=== PATIENT | female | born 1955 | race Caucasian/White ===

== ENCOUNTER → 2018-07-31 12:32 | Outpatient (CLI) | payer MEDICARE, OTHER, SELFPAY ==
--- NOTE | 2018-07-31 | DI.MG.S_ITS ---
BILATERAL DIGITAL SCREENING MAMMOGRAM 3D/2D WITH CAD: 07/31/2018 CLINICAL: Routine screening. Family history of breast cancer. Comparison is made to exams dated: 07/14/2017 mammogram, 05/06/2016 mammogram, and 12/10/2014 mammogram - [facility]. There are scattered fibroglandular elements in both breasts. Current study was also evaluated with a Computer Aided Detection (CAD) system. There is a mole marker on the left breast. No significant masses, calcifications, or other findings are seen in either breast. There has been no significant interval change. IMPRESSION: NEGATIVE There is no mammographic evidence of malignancy. A 1 year screening mammogram is recommended. This exam was interpreted at Station ID: [id number]. NOTE: For mammograms, a report in lay terms will be sent to the patient. Approximately 15% of breast malignancies will not be visualized mammographically. In the management of a palpable breast mass, a negative mammogram must not discourage biopsy of a clinically suspicious lesion. Electronically Signed By: Kyle bailey/lizabeth:07/31/2018 17:26:36 letter sent: Normal Exam ACR BI-RADS Category 1: Negative 3341F
== END ==
PROVIDERS: PCP Family Medicine; Visit Provider Family Medicine
DX: Z12.31 Encounter for screening mammogram for malignant neoplasm of breast (principal); Z80.3 Family history of malignant neoplasm of breast; Z78.0 Asymptomatic menopausal state; Z82.62 Family history of osteoporosis
CPT/HCPCS: 77063; 77067; 77080

== ENCOUNTER → 2019-08-17 14:02 | Outpatient (CLI) | payer MEDICARE, OTHER, SELFPAY ==
--- NOTE | 2019-08-17 | DI.MG.S_ITS ---
BILATERAL DIGITAL SCREENING MAMMOGRAM 3D/2D WITH CAD: 08/17/2019 CLINICAL: Routine screening. Family history of breast cancer. Comparison is made to exams dated: 07/31/2018 mammogram, 07/14/2017 mammogram, and 05/06/2016 mammogram - [facility]. There are scattered fibroglandular elements in both breasts. Current study was also evaluated with a Computer Aided Detection (CAD) system. No significant masses, calcifications, or other findings are seen in either breast. There has been no significant interval change. IMPRESSION: NEGATIVE There is no mammographic evidence of malignancy. A 1 year screening mammogram is recommended. This exam was interpreted at Station ID: [id number]. NOTE: For mammograms, a report in lay terms will be sent to the patient. Approximately 15% of breast malignancies will not be visualized mammographically. In the management of a palpable breast mass, a negative mammogram must not discourage biopsy of a clinically suspicious lesion. Electronically Signed By: Du cadena/lizabeth:08/17/2019 16:32:45 letter sent: Normal Exam ACR BI-RADS Category 1: Negative 3341F
== END ==
PROVIDERS: PCP Family Medicine; Visit Provider Family Medicine
DX: Z12.31 Encounter for screening mammogram for malignant neoplasm of breast (principal); Z80.3 Family history of malignant neoplasm of breast
CPT/HCPCS: 77063; 77067

== ENCOUNTER → 2020-08-20 08:08 | Outpatient (CLI) | payer MEDICARE, OTHER, SELFPAY ==
--- NOTE | 2020-08-20 | DI.MG.S_ITS ---
BILATERAL DIGITAL SCREENING MAMMOGRAM 3D/2D WITH CAD: 08/20/2020 CLINICAL: Routine screening. Family history of breast cancer. Comparison is made to exams dated: 08/17/2019 mammogram, 07/31/2018 mammogram, and 07/14/2017 mammogram - [facility]. There are scattered fibroglandular elements in both breasts. Current study was also evaluated with a Computer Aided Detection (CAD) system. No significant masses, calcifications, or other findings are seen in either breast. There has been no significant interval change. IMPRESSION: NEGATIVE There is no mammographic evidence of malignancy. A 1 year screening mammogram is recommended. This exam was interpreted at Station ID: [id number]. NOTE: For mammograms, a report in lay terms will be sent to the patient. Approximately 15% of breast malignancies will not be visualized mammographically. In the management of a palpable breast mass, a negative mammogram must not discourage biopsy of a clinically suspicious lesion. Electronically Signed By: Abdelrahman lowry/lizabeth:08/20/2020 10:35:05 letter sent: Normal Exam ACR BI-RADS Category 1: Negative 3341F
== END ==
PROVIDERS: PCP Family Medicine; Referring Provider Family Medicine; Visit Provider Family Medicine
DX: Z12.31 Encounter for screening mammogram for malignant neoplasm of breast (principal); Z78.0 Asymptomatic menopausal state; Z80.3 Family history of malignant neoplasm of breast; Z82.62 Family history of osteoporosis
CPT/HCPCS: 77063; 77067; 77080

== ENCOUNTER → 2020-09-22 12:32 | Outpatient (CLI) | payer MEDICARE, OTHER, SELFPAY ==
--- NOTE | 2020-09-22 | DI.RAD.S_ITS ---
PROCEDURE: XR CHEST 2V INDICATIONS: Shortness of breath TECHNIQUE: 2 views of the chest were acquired. COMPARISON: None. FINDINGS: Surgical changes and devices: None. Lungs and pleura: Lungs are clear. No pleural effusions or pneumothorax. Mediastinum: Mediastinal contours are normal. Heart size is normal. Bones and chest wall: No suspicious bony abnormalities. Soft tissues appear unremarkable. IMPRESSION: 1. No acute cardiopulmonary disease. Dictated by: Tanner Srinivasan RR Interpreted: Abdelrahman Aguirre MD on 09/22/2020 at 13:45 Approved by: Abdelrahman Aguirre M.D. on 09/22/2020 at 15:47
== END ==
PROVIDERS: PCP Family Medicine; Referring Provider Family Medicine; Visit Provider Family Medicine
DX: R06.02 Shortness of breath (principal); R00.2 Palpitations; R55 Syncope and collapse
CPT/HCPCS: 71046

== ENCOUNTER → 2020-10-01 14:42 | Outpatient (CLI) | payer MEDICARE, OTHER, SELFPAY ==
--- NOTE | 2020-10-22 10:22 | P.HOLT.S_ITS ---
[employer] Agent Report Referral & Results Date Patient Seen: 10/01/20 Requesting provider: Emmy Richard Indication: Palpitations Duration of monitoring (days): 7 Diary information: There were 31 patient triggered events and 5 patient diary entries Patient triggered events were associated with (within 45 seconds) sinus rhythm, PVCs, and PACs Patient diary events were associated with sinus rhythm only Data: Minimum heart rate identified was 45 beats per minute at 05:41 on 10/02/2020 Maximum sinus heart rate was 169 beats per minute at 09:55 on 10/03/2020 Maximum overall heart rate was 184 beats per minute at 11:12 on 10/03/2020 Less than 1% of identified beats were the ventricular supraventricular ectopic in origin. Patient had 1 run of SVT that was 5 beats in duration at a rate of 184 beats per minute Impression: Patient with scattered PVCs and PACs that are considered rare in frequency. These are probably connected the patient's symptoms of palpitations based on her triggered events No other more serious dysrhythmias were identified on this study
== END ==
PROVIDERS: PCP Family Medicine; Referring Provider Family Medicine; Visit Provider Family Medicine
DX: R00.2 Palpitations (principal); R55 Syncope and collapse; R06.02 Shortness of breath
CPT/HCPCS: 93242; 93244

== ENCOUNTER → 2020-10-04 11:46 | Outpatient (CLI) | payer MEDICARE, OTHER, SELFPAY ==
[2020-10-04 12:26] LABS: COVID19 -Nasal RAPID Negative (Negative)
== END ==
PROVIDERS: PCP Family Medicine; Visit Provider Physician Assistant
DX: Z20.822 Contact with and (suspected) exposure to COVID-19 (principal)
CPT/HCPCS: 87635; C9803

== ENCOUNTER → 2020-10-06 07:43 | Outpatient (CLI) | payer MEDICARE, OTHER, SELFPAY ==
--- NOTE | 2020-10-06 12:10 | PM.TREADMILL ---
Cardiac Stress Test Report Referral & Results Date Patient Seen: 10/06/20 Time Patient Seen: 12:10 Requesting provider: Emmy Richard Indication: Palpitations Rest ECG: Sinus rhythm Procedure Note: Standard Griffin protocol, 8:58, 8.9 METS Good exercise capacity, LAZARO -46% Normal hemodynamic response to exercise No chest pain or anginal symptoms No significant ST changes at peak exercise Occasional PVCs Impression: Normal exercise stress test Please note: Actual ECG tracings can be found in the PACS system.
--- NOTE | 2020-10-06 17:47 | DI.NM.S_ITS ---
DATE OF SERVICE: 10/06/2020 PROCEDURE PERFORMED: Exercise treadmill stress and rest myocardial perfusion imaging with gating to assess ejection fraction and regional wall motion. ORDERING PROVIDER: Dr. Emmy Richard. INDICATIONS: The patient is a 65-year-old female with palpitations, exertional dyspnea, and atypical chest discomfort. EXERCISE TREADMILL TESTING: The patient was able to exercise for 8 minutes 58 seconds on a standard Griffin protocol suggesting excellent exercise capacity with an LAZARO of -46%. She had a normal heart rate and blood pressure response, achieving a maximum heart rate of 158 BPM (103% of her predicted maximum). She had no chest discomfort. Her resting ECG is normal and there are no ischemic changes with stress. There were rare isolated PVCs, but no concerning arrhythmias. At 8 minutes of exercise, at a heart rate of 155 BPM, 26.3 millicuries of technetium-99m Myoview was injected and the patient was imaged 15 minutes later using a gated SPECT acquisition protocol. Earlier in the day while at rest, she had been injected with 9.2 millicuries of technetium-99m Myoview and was scanned 30 minutes later, again using a gated SPECT protocol. FINDINGS: 1. Raw data: There is fair myocardial tracer uptake. There is some subdiaphragmatic tracer activity adjacent to the inferior wall on the resting images that influences the interpretation. The lung/heart ratio was normal at 0.31 with a normal TID ratio of 1.04. 2. Quantitated gated SPECT: Post-stress ejection fraction is estimated at 81% without any focal wall motion abnormality and specifically the inferoseptum appears to have normal contractility. The resting ejection fraction is 80% with an end- diastolic volume of 69 mL. 3. Post-stress supine images show a fairly normal myocardial perfusion pattern with a subtle defect in the proximal and mid inferior wall and inferoseptum in a pattern consistent with diaphragmatic attenuation, supported by the near-complete resolution on the prone images. The resting images are somewhat compromised by the subdiaphragmatic tracer activity but generally appear to be unchanged from the post stress supine images without obvious improvement in the inferior defect.. IMPRESSION: 1. Probable normal myocardial perfusion study. 2. Subtle, fixed proximal to mid inferior defect that resolves on prone imaging, most consistent with diaphragmatic attenuation. There is no compelling evidence for significant myocardial ischemia or previous myocardial infarction. 3. Normal left ventricular systolic function without any focal wall motion abnormality. 4. Excellent exercise capacity without angina or ECG evidence of ischemia. Deepti Muhammad - AVNI/el/mera doc#: [id number]/job#: [id number] dd: 10/06/2020 16:54:00 dt: 10/06/2020 17:25:00 DICTATING MD/COPIES TO: Roldan Bustamante MD; Emmy Richard MD COPIES MNE: DIGNA;
== END ==
PROVIDERS: PCP Family Medicine; Referring Provider Family Medicine; Visit Provider Family Medicine
DX: R00.2 Palpitations (principal); R06.02 Shortness of breath; R06.09 Other forms of dyspnea; R07.89 Other chest pain
CPT/HCPCS: 78452; 93017; A9502

== ENCOUNTER → 2020-10-09 09:11 | Outpatient (CLI) | payer MEDICARE, OTHER, SELFPAY ==
--- NOTE | 2020-10-09 | DI.ECHO.S_ITS ---
[facility] +---------+ : : [address] : [place] : : : : [id number] : : : : Phone: [phone]---------+ Echocardiogram Report + + :Name: FARRAH DE LEON Study Date: 10/09/2020 Height: 65 in : :[facility] ReadingLocation: Weight: 130 lb : : Gender: Female BSA: 1.6 m2 : :: 1955 Age: 65 yrs BP: 135/81 mmHg: :Reason For Study: PALPITATIONS : :Ordering Physician: KYLIE, : :TIFFANIE Performed By: Chari Hermosillo : :Referring: TIFFANIE ESPINAL : + + Interpretation Summary The left ventricle is normal in size and wall thickness. The ejection fraction is estimated to be 50-55%. The right ventricle is normal in size and function. There is mild to moderate mitral regurgitation. There is mild tricuspid regurgitation. The right ventricular systolic pressure is estimated to be at least 23 mmHg based on an estimated right atrial pressure of 3 mm Hg. Large liver cyst seen (7.9 x 6.8 cm) Procedure: A two-dimensional transthoracic echocardiogram with color flow and Doppler was performed. The study quality was technically adequate. There is no prior echocardiogram noted for this patient. The patient was in sinus rhythm with heart rates between 63-80 bpm during the exam. Left Ventricle: The left ventricle is normal in size and wall thickness. There is no thrombus. The ejection fraction is estimated to be 50-55%. There are no focal wall motion abnormalities. Diastolic parameters suggest a relaxation abnormality of the left ventricle, consistent with probable normal filling pressures. Right Ventricle: The right ventricle is normal in size and function. Atria: The left atrial size is normal. Right atrial size is normal. There is no Doppler evidence for an interatrial shunt. Mitral Valve: The mitral valve leaflets are slightly calcified. There is mild to moderate mitral regurgitation. Aortic Valve: The aortic valve is trileaflet. The aortic valve opens well. There is no aortic valve stenosis. No aortic regurgitation is present. Tricuspid Valve: The tricuspid valve is normal. There is mild tricuspid regurgitation. The right ventricular systolic pressure is estimated to be at least 23 mmHg based on an estimated right atrial pressure of 3 mm Hg. Pulmonic Valve: The pulmonic valve is not well visualized. There is no pulmonic valvular regurgitation. Great Vessels: The aortic root is normal size. The dimensions of the ascending aorta are normal. The aortic arch could not be visualized. The IVC is of normal diameter and collapses greater than 50% with a sniff. This suggests a low right atrial pressure of 3 mm Hg. Pericardium/ Pleura There is no pericardial effusion. There is no pleural effusion. MMode/2D Measurements & Calculations LVIDd: 3.8 cm LVOT diam: 2.2 cm LVIDs: 2.6 cm Ao root diam: 2.3 cm FS: 30.9 % asc Aorta Diam: 3.2 cm EPSS: 0.35 cm IVSd: 0.82 cm LVPWd: 0.80 cm LV ghosh. diameter/BSA (cm/m^2): 2.3 LV sys. diameter/BSA (cm/m^2): 1.6 LA A2 area: 14.6 cm2 RA long axis: 4.2 cm LA A4 area: 13.2 cm2 RA area: 13.2 cm2 LA length (vol): 3.7 cm RA vol: 35.3 ml LA vol: 44.6 ml RA : 21.4 ml/m2 LA vol index: 27.1 ml/m2 IVC diam: 1.3 cm RVD1 (basal): 3.1 cm TAPSE: 2.0 cm Doppler Measurements & Calculations Ao V2 max: 127.4 cm/sec LVOT Max Lauri: 115.6 cm/sec Ao V2 mean: 87.9 cm/sec LV V1 max P.3 mmHg Ao max P.5 mmHg LV V1 VTI: 22.8 cm Ao mean P.5 mmHg EDILIA(I,D): 3.5 cm2 Ao V2 VTI: 25.1 cm EDILIA(V,D): 3.5 cm2 sev ratio: 0.91 EDILIA indexed to BSA (cm^2/m^2): 2.1 MV E max lauri: 61.6 cm/sec TR max lauri: 226.2 cm/sec MV A max lauri: 62.1 cm/sec TR max P.5 mmHg MV E/A: 0.99 PA V2 max: 57.3 cm/sec Med Peak E' Lauri: 11.7 cm/sec PA V2 mean: 37.1 cm/sec E/E' med: 5.3 PA mean P.65 mmHg Lat Peak E' Lauri: 11.1 cm/sec PA pr(Accel): 26.3 mmHg E/E' lat: 5.5 E/e' average: 5.4 MV dec time: 0.20 sec SV(LVOT): 88.5 ml Reading Physician:03:01 PM
== END ==
PROVIDERS: PCP Family Medicine; Referring Provider Family Medicine; Visit Provider Family Medicine
DX: R00.2 Palpitations (principal)
CPT/HCPCS: 93306

== ENCOUNTER → 2020-12-05 09:38 | Outpatient (CLI) | payer MEDICARE, SELFPAY ==
--- NOTE | 2020-12-05 | DI.US.S_ITS ---
PROCEDURE: US ABDOMEN LIMITED INDICATIONS: LIVER CYST ON ECHO TECHNIQUE: Real-time focused scanning was performed of the abdomen, with image documentation. COMPARISON: None. FINDINGS: Numerous simple appearing liver cysts are seen, which measure up to 7.9 cm within the left liver lobe. There is also a septated cyst within the anterior right liver without abnormal vascularity that measures up to 1.7 cm. The liver demonstrates normal size and normal overall echotexture. IMPRESSION: Liver cysts are seen, including a septated 1.7 cm cyst within the anterior right liver. No specific additional imaging workup is recommended. Dictated by: Sharath Buclkey M.D. on 12/05/2020 at 12:25 Approved by: Sharath Buckley M.D. on 12/05/2020 at 12:26
== END ==
PROVIDERS: PCP Family Medicine; Referring Provider Family Medicine; Visit Provider Family Medicine
DX: K76.89 Other specified diseases of liver (principal)
CPT/HCPCS: 76705

== ENCOUNTER → 2021-09-02 10:41 | Outpatient (CLI) | payer MEDICARE, SELFPAY ==
--- NOTE | 2021-09-02 | DI.MG.S_ITS ---
BILATERAL DIGITAL SCREENING MAMMOGRAM 3D/2D WITH CAD: 09/02/2021 CLINICAL: Routine screening. Family history of breast cancer. Comparison is made to exams dated: 08/17/2019 mammogram, 07/31/2018 mammogram, and 07/14/2017 mammogram - [facility]. There are scattered fibroglandular elements in both breasts. Current study was also evaluated with a Computer Aided Detection (CAD) system. No significant masses, calcifications, or other findings are seen in either breast. There has been no significant interval change. IMPRESSION: NEGATIVE There is no mammographic evidence of malignancy. A 1 year screening mammogram is recommended. This exam was interpreted at Station ID: [id number]. NOTE: For mammograms, a report in lay terms will be sent to the patient. Approximately 15% of breast malignancies will not be visualized mammographically. In the management of a palpable breast mass, a negative mammogram must not discourage biopsy of a clinically suspicious lesion. Electronically Signed By: Alfredito Guthrie M.D., jr/lizabeth:09/02/2021 11:55:02 letter sent: Normal Exam ACR BI-RADS Category 1: Negative 3341F
== END ==
PROVIDERS: PCP Family Medicine; Referring Provider Family Medicine; Visit Provider Family Medicine
DX: Z12.31 Encounter for screening mammogram for malignant neoplasm of breast (principal); Z80.3 Family history of malignant neoplasm of breast
CPT/HCPCS: 77063; 77067

== ENCOUNTER → 2021-10-15 07:58 | Outpatient (CLI) | payer MEDICARE, SELFPAY ==
--- NOTE | 2021-10-15 | DI.ECHO.S_ITS ---
[facility]---------+ [facility] +---------+ : : [address] : : : : [place] : : : : [id number] : : : : Phone: [phone] : [phone] +---------+ Echocardiogram Report + + :Name: FARRAH DE LEON Study Date: 10/15/2021 Height: 65 in : :[facility] ReadingLocation: Weight: 128 lb : : Gender: Female BSA: 1.6 m2 : :: 1955 Age: 66 yrs BP: 137/75 mmHg: :Reason For Study: MITRAL INSUFFICIENCY : :Ordering Physician: KYLIE, : :TIFFANIE Performed By: Chari Hermosillo : :Referring: TIFFANIE ESPINAL : + + Interpretation Summary The ejection fraction is estimated to be 60-65%. There is mild mitral regurgitation. Compared to the prior echo study, there has been a decrease in the severity of mitral regurgitation. There is mild tricuspid regurgitation. The right ventricular systolic pressure is estimated to be at least 25 mmHg based on an estimated right atrial pressure of 3 mm Hg. Incidental finding of a large liver cyst seen (7.9 x 6.4 cm) Procedure: A two-dimensional transthoracic echocardiogram with color flow and Doppler was performed. The study quality was technically adequate. Comparison is made with the echocardiogram of 10/09/2020. The patient was in sinus rhythm with heart rates between 65-75 bpm during the exam. Left Ventricle: The left ventricle is normal in size and wall thickness. The ejection fraction is estimated to be 60-65%. There are no obvious focal wall motion abnormalities noted but poor endocardial definition reduces the sensitivity for the detection of such. Right Ventricle: The right ventricle is borderline dilated. The right ventricular systolic function is normal. Atria: The left atrial size is normal. Right atrial size is normal. There is no Doppler evidence for an interatrial shunt. Mitral Valve: The mitral valve is normal in structure and function. There is mild mitral regurgitation. Compared to the prior echo study, there has been a decrease in the severity of mitral regurgitation. Aortic Valve: The aortic valve is trileaflet. The aortic valve opens well. There is no aortic valve stenosis. No aortic regurgitation is present. Tricuspid Valve: The tricuspid valve is normal in structure and function. There is mild tricuspid regurgitation. The right ventricular systolic pressure is estimated to be at least 25 mmHg based on an estimated right atrial pressure of 3 mm Hg. Pulmonic Valve: The pulmonic valve leaflets are thin and pliable; valve motion is normal. There is trace pulmonic regurgitation. Great Vessels: The aortic root is normal size. The dimensions of the ascending aorta are normal. The IVC is of normal diameter and collapses greater than 50% with a sniff. This suggests a low right atrial pressure of 3 mm Hg. Pericardium/ Pleura There is no pericardial effusion. There is no pleural effusion. MMode/2D Measurements & Calculations LVIDd: 4.3 cm LVOT diam: 2.1 cm LVIDs: 2.9 cm Ao root diam: 3.2 cm FS: 33.3 % asc Aorta Diam: 3.1 cm IVSd: 0.67 cm Ao Arch Diam (Prox Trans): 2.5 cm LVPWd: 0.68 cm LV ghosh. diameter/BSA (cm/m^2): 2.6 LV sys. diameter/BSA (cm/m^2): 1.8 LA A2 area: 15.4 cm2 RA long axis: 3.8 cm LA A4 area: 12.8 cm2 RA area: 14.2 cm2 LA length (vol): 4.0 cm RA vol: 45.0 ml LA vol: 41.3 ml RA : 27.5 ml/m2 LA vol index: 25.3 ml/m2 IVC diam: 1.2 cm RVD1 (basal): 4.1 cm RVD2 (mid): 3.3 cm TAPSE: 1.9 cm Doppler Measurements & Calculations Ao V2 max: 119.5 cm/sec LVOT Max Lauri: 108.5 cm/sec Ao V2 mean: 76.6 cm/sec LV V1 max P.7 mmHg Ao max P.7 mmHg LV V1 VTI: 19.4 cm Ao mean P.7 mmHg EDILIA(I,D): 3.1 cm2 Ao V2 VTI: 22.5 cm EDILIA(V,D): 3.2 cm2 sev ratio: 0.87 EDILIA indexed to BSA (cm^2/m^2): 1.9 MV E max lauri: 65.4 cm/sec TR max lauri: 235.0 cm/sec MV A max lauri: 51.5 cm/sec TR max P.2 mmHg MV E/A: 1.3 PA V2 max: 95.3 cm/sec Med Peak E' Lauri: 11.2 cm/sec PA V2 mean: 64.9 cm/sec E/E' med: 5.8 PA mean P.9 mmHg Lat Peak E' Lauri: 11.5 cm/sec PA pr(Accel): 31.0 mmHg E/E' lat: 5.7 E/e' average: 5.7 MV dec time: 0.26 sec SV(LVOT): 69.0 ml Reading Physician:10:07 AM
== END ==
PROVIDERS: PCP Family Medicine; Referring Provider Family Medicine; Visit Provider Family Medicine
DX: I08.1 Rheumatic disorders of both mitral and tricuspid valves
CPT/HCPCS: 93306

== ENCOUNTER → 2022-09-29 08:22 | Outpatient (CLI) | payer MEDICARE, BC, SELFPAY ==
--- NOTE | 2022-09-29 | DI.MG.S_ITS ---
BILATERAL DIGITAL SCREENING MAMMOGRAM 3D/2D WITH CAD: 09/29/2022 CLINICAL: Routine screening. Family history of breast cancer. Comparison is made to exams dated: 08/20/2020 mammogram, 09/02/2021 mammogram, and 08/17/2019 mammogram - [facility]. There are scattered areas of fibroglandular density in both breasts (category b / 25%-50% glandular tissue). Current study was also evaluated with a Computer Aided Detection (CAD) system. No significant masses, calcifications, or other findings are seen in either breast. There has been no significant interval change. IMPRESSION: NEGATIVE There is no mammographic evidence of malignancy. A 1 year screening mammogram is recommended. Based on the Tyrer Cuzick model (a risk assessment model) the patient's lifetime risk is 12.5% and her 10 year risk is 7.5%. According to the ACR, ACS, and NCCN guidelines, an annual breast MRI exam along with mammogram is recommended if the patient's lifetime risk is 20% or greater. This exam was interpreted at Station ID: [id number]. NOTE: For mammograms, a report in lay terms will be sent to the patient. Approximately 15% of breast malignancies will not be visualized mammographically. In the management of a palpable breast mass, a negative mammogram must not discourage biopsy of a clinically suspicious lesion. Electronically Signed By: Keyanna cedeno/lizabeth:09/29/2022 15:05:18 letter sent: Normal Exam ACR BI-RADS Category 1: Negative 3341F
== END ==
PROVIDERS: PCP Family Medicine; Referring Provider Family Medicine; Visit Provider Family Medicine
DX: Z12.31 Encounter for screening mammogram for malignant neoplasm of breast (principal); Z80.3 Family history of malignant neoplasm of breast
CPT/HCPCS: 77063; 77067

== ENCOUNTER → 2023-07-21 10:13 | Outpatient (CLI) | payer MEDICARE, BC, SELFPAY ==
--- NOTE | 2023-07-21 10:16 | DI.RAD.S_ITS ---
Bone Density Report Name: FARRAH DE LEON Age: 68 Sex: Female Ethnicity: White Date of : 1955 Indication: postmenopausal; screening for osteoporosis; Referring Provider: TIFFANIE ESPINAL Study: Bone densitometry was performed. Exam Date: July 21, 2023 Accession number: [id number] Bone Density: Region BMD T-score Z-score Classification AP Spine(L1, L2, L3) 0.994 -0.2 1.9 Normal Femoral Neck (Left) 0.740 -1.0 0.8 Normal Total Hip (Left) 0.884 -0.5 1.0 Normal Femoral Neck (Right) 0.748 -0.9 0.9 Normal Total Hip (Right) 0.885 -0.5 1.0 Normal Total Hip Mean 0.885 -0.5 1.0 Normal World Health Organization criteria for BMD impression classify patients as: Normal (T-score at or above -1.0), Osteopenia (T-score between -1.0 and -2.5), or Osteoporosis (T-score at or below -2.5). 10-year Fracture Risk: FRAX not reported because: All T-scores for Spine Total, Hip Total, Femoral Neck at or above -1.0 Previous Exams: -- Region Exam Age BMD T-score BMD Change BMD Change Date g/cm2 vs Baseline vs Previous -- AP Spine (L1-L3) 07/21/2023 68 0.994 -0.2 -0.201 (-16.8%)# -0.053 (-5.1%)# 08/20/2020 65 1.047 0.3 -0.147 (-12.3%)* -0.035 (-3.2%)* 07/31/2018 63 1.082 0.6 -0.112 (-9.4%)* -0.025 (-2.3%)* 11/15/2011 56 1.107 0.8 -0.087 (-7.3%)* -0.002 (-0.1%) 09/08/2009 54 1.109 0.8 -0.085 (-7.1%)* -0.085 (-7.1%)* 02/28/2006 50 1.194 1.6 Total Hip(Left) 07/21/2023 68 0.884 -0.5 -0.166 (-15.8%)# -0.019 (-2.1%)# 08/20/2020 65 0.903 -0.3 -0.147 (-14.0%)* -0.016 (-1.8%) 07/31/2018 63 0.920 -0.2 -0.131 (-12.4%)* -0.069 (-7.0%)* 11/15/2011 56 0.988 0.4 -0.062 (-5.9%)* -0.015 (-1.5%) 09/08/2009 54 1.004 0.5 -0.046 (-4.4%)* -0.046 (-4.4%)* 02/28/2006 50 1.050 0.9 Total Hip(Right) 07/21/2023 68 0.885 -0.5 -0.162 (-15.5%)# 0.005 (0.5%)# 08/20/2020 65 0.880 -0.5 -0.166 (-15.9%)* -0.051 (-5.5%)* 07/31/2018 63 0.932 -0.1 -0.115 (-11.0%)* -0.054 (-5.5%)* 11/15/2011 56 0.986 0.4 -0.061 (-5.8%)* -0.002 (-0.2%) 09/08/2009 54 0.988 0.4 -0.059 (-5.6%)* -0.059 (-5.6%)* 02/28/2006 50 1.047 0.9 -- *Denotes significance at 95% confidence level, LSC for AP Spine = 0.022 g/cm2, LSC for Total Hip = 0.027 g/cm2 Rate of change results reflect vertebral levels common to all scans # Denotes dissimilar scan types or analysis methods Impression: The patient has normal bone mass. No significant bone loss was observed. Discussion: BONE DENSITY IS ABOVE THE MINIMUM DESIRABLE LEVEL AT ALL SKELETAL SITES TESTED. This patient's bone mineral density is above the minimum desirable level (T-score -1.0 or better) at all sites measured. The patient should follow a healthful lifestyle (good nutrition with adequate calcium and vitamin D, and appropriate weight-bearing exercise). Follow-Up: Consider repeating this study in 5 years or sooner if there is some new clinical indication. Reported by: SAHRA BRAVO M.D. on 07/21/2023 10:57:00 AM.
== END ==
PROVIDERS: PCP Family Medicine; Referring Provider Family Medicine; Visit Provider Family Medicine
DX: Z78.0 Asymptomatic menopausal state (principal); Z00.00 Encounter for general adult medical examination without abnormal findings; N18.31 Chronic kidney disease, stage 3a
CPT/HCPCS: 77080

== ENCOUNTER → 2023-07-27 07:59 | Outpatient (CLI) | payer MEDICARE, BC, SELFPAY ==
--- NOTE | 2023-07-27 | DI.ECHO.S_ITS ---
[place] [facility] +---------+ : : [address] : [address] [place] : : : : [id number] : : : : Phone: [phone]+ Echocardiogram Report + + :Name: FARRAH DE LEON Study Date: 07/27/2023 Height: 65 in : :[facility] ReadingLocation: Weight: 129 lb : : Gender: Female BSA: 1.6 m2 : :: 1955 Age: 68 yrs BP: 151/90 mmHg: :Reason For Study: MITRAL INSUFFICIENCY : :Ordering Physician: KYLIE, : :TIFFANIE Performed By: Chari Hermosillo : :Referring: TIFFANIE ESPINAL : + + Interpretation Summary The ejection fraction is estimated to be 60-65%. There is mild mitral regurgitation. There is mild tricuspid regurgitation. Incidental finding of a large liver cyst seen 7x8cm Compared to the prior echo report on 2021, there is no significant change. Procedure: A two-dimensional transthoracic echocardiogram with color flow and Doppler was performed. The study quality was technically adequate. Comparison is made with the echocardiogram of 10/15/2021. The patient was in sinus rhythm with heart rates between 68-75 bpm during the exam. Left Ventricle: The left ventricle is normal in size and wall thickness. The ejection fraction is estimated to be 60-65%. Left ventricular wall motion is normal. Diastolic parameters suggest probable normal left ventricular diastolic function and normal filling pressures. Right Ventricle: The right ventricle is normal in size and function. Atria: The left atrial size is normal. Right atrial size is normal. There is no Doppler evidence for an interatrial shunt. Mitral Valve: The mitral valve is normal in structure and function. There is mild mitral regurgitation. Aortic Valve: The aortic valve is trileaflet. The aortic valve opens well. There is no aortic valve stenosis. No aortic regurgitation is present. Tricuspid Valve: The tricuspid valve is normal in structure and function. There is mild tricuspid regurgitation. The right ventricular systolic pressure is estimated to be at least 27 mmHg based on an estimated right atrial pressure of 3 mm Hg. Pulmonic Valve: The pulmonic valve leaflets are thin and pliable; valve motion is normal. There is mild pulmonic regurgitation. Great Vessels: The aortic root is normal size. The dimensions of the ascending aorta are normal. The IVC is of normal diameter and collapses greater than 50% with a sniff. This suggests a low right atrial pressure of 3 mm Hg. Pericardium/ Pleura There is no pericardial effusion. There is no pleural effusion. MMode/2D Measurements & Calculations LVIDd: 4.0 cm LVOT diam: 2.2 cm LVIDs: 2.5 cm Ao root diam: 3.2 cm FS: 36.5 % asc Aorta Diam: 3.3 cm IVSd: 0.72 cm Ao Arch Diam (Prox Trans): 2.7 cm LVPWd: 0.72 cm LV ghosh. diameter/BSA (cm/m^2): 2.4 LV sys. diameter/BSA (cm/m^2): 1.5 LA A2 area: 13.7 cm2 RA long axis: 4.1 cm LA A4 area: 11.4 cm2 RA area: 14.2 cm2 LA length (vol): 3.7 cm RA vol: 42.1 ml LA vol: 36.1 ml RA : 25.6 ml/m2 LA vol index: 22.0 ml/m2 IVC diam: 1.1 cm RVD1 (basal): 3.8 cm TAPSE: 2.2 cm Doppler Measurements & Calculations Ao V2 max: 137.2 cm/sec LVOT Max Lauri: 110.6 cm/sec Ao V2 mean: 97.8 cm/sec LV V1 max P.9 mmHg Ao max P.5 mmHg LV V1 VTI: 22.2 cm Ao mean P.2 mmHg EDILIA(I,D): 2.7 cm2 Ao V2 VTI: 31.3 cm EDILIA(V,D): 3.0 cm2 sev ratio: 0.71 EDILIA indexed to BSA (cm^2/m^2): 1.6 MV E max lauri: 65.4 cm/sec TR max lauri: 246.6 cm/sec MV A max lauri: 59.9 cm/sec TR max P.3 mmHg MV E/A: 1.1 PA V2 max: 90.6 cm/sec Med Peak E' Lauri: 12.1 cm/sec PA V2 mean: 64.6 cm/sec E/E' med: 5.4 PA mean P.8 mmHg Lat Peak E' Lauri: 12.3 cm/sec PA pr(Accel): 22.5 mmHg E/E' lat: 5.3 E/e' average: 5.3 MV dec time: 0.21 sec SVLVOT): 83.3 ml Reading Physician:10:01 AM
== END ==
PROVIDERS: PCP Family Medicine; Referring Provider Family Medicine; Visit Provider Family Medicine
DX: I08.1 Rheumatic disorders of both mitral and tricuspid valves (principal); I10 Essential (primary) hypertension
CPT/HCPCS: 93306

== ENCOUNTER → 2023-08-23 12:32 | Outpatient (CLI) | payer MEDICARE, BC, SELFPAY | PROVIDERS: PCP Family Medicine; Visit Provider Physician Assistant | DX: R30.0 Dysuria (principal) | CPT/HCPCS: 87077; 87086; 87186 ==

== ENCOUNTER → 2023-10-03 15:47 | Outpatient (CLI) | payer MEDICARE, BC, SELFPAY ==
--- NOTE | 2023-10-03 15:49 | DI.MG.S_ITS ---
BILATERAL DIGITAL SCREENING MAMMOGRAM 3D/2D WITH CAD: 10/03/2023 CLINICAL: Routine screening. Family history of breast cancer. Comparison is made to exams dated: 09/29/2022 mammogram, 09/02/2021 mammogram, and 08/20/2020 mammogram - [facility]. There are scattered areas of fibroglandular density in both breasts (category b / 25%-50% glandular tissue). Current study was also evaluated with a Computer Aided Detection (CAD) system. No significant masses, calcifications, or other findings are seen in either breast. There has been no significant interval change. IMPRESSION: NEGATIVE There is no mammographic evidence of malignancy. A 1 year screening mammogram is recommended. Based on the Tyrer Cuzick model (a risk assessment model) the patient's lifetime risk is 11.9% and her 10 year risk is 7.6%. According to the ACR, ACS, and NCCN guidelines, an annual breast MRI exam along with mammogram is recommended if the patient's lifetime risk is 20% or greater. This exam was interpreted at Station ID: [id number]. NOTE: For mammograms, a report in lay terms will be sent to the patient. Approximately 15% of breast malignancies will not be visualized mammographically. In the management of a palpable breast mass, a negative mammogram must not discourage biopsy of a clinically suspicious lesion. Electronically Signed By: Du cadena/lizabeth:10/04/2023 08:36:03 letter sent: Normal Exam ACR BI-RADS Category 1: Negative [id number]
== END ==
PROVIDERS: PCP Family Medicine; Referring Provider Family Medicine; Visit Provider Family Medicine
DX: Z12.31 Encounter for screening mammogram for malignant neoplasm of breast (principal); Z80.3 Family history of malignant neoplasm of breast; R92.323 Mammographic fibroglandular density, bilateral breasts
CPT/HCPCS: 77063; 77067

== ENCOUNTER → 2024-03-02 09:59 | Outpatient (CLI) | payer MEDICARE, BC, SELFPAY | PROVIDERS: PCP Family Medicine; Visit Provider Nurse Practitioner Family | DX: R30.0 Dysuria (principal) | CPT/HCPCS: 87077; 87086; 87186 ==

== ENCOUNTER → 2024-06-18 10:11 | Outpatient (CLI) | payer MEDICARE, BC, SELFPAY | PROVIDERS: PCP Family Medicine; Visit Provider Physician Assistant Surgical | DX: R30.0 Dysuria (principal) | CPT/HCPCS: 87077; 87086; 87186 ==

== ENCOUNTER → 2024-07-30 | Outpatient (CLI) | payer MEDICARE, BC, SELFPAY ==
--- NOTE | 2024-07-30 19:05 | DI.MRI.S_ITS ---
PROCEDURE: MR SHOULDER LT W CON INDICATIONS: CHRONIC LEFT SHOULDER PAIN TECHNIQUE: After the administration of 12 mL of dilute intra-articular Gadolinium contrast, oblique coronal T1 and T2 spin echo with fat saturation, oblique sagittal T1 spin echo with and without fat saturation, oblique sagittal T2 fast spin echo with fat saturation, axial T1 spin echo with fat saturation through the shoulder. COMPARISON: None. FINDINGS: Image quality: Excellent. Rotator cuff: There is full-thickness rupture involving distal supraspinatus at its insertion on the humeral head with up to 2.5 cm medial retraction of torn tendon fibers to the level of acromion. Low to moderate grade articular surface partial-thickness tear involving distal infraspinatus at its insertion on the humeral head is seen. Low-grade intrasubstance partial-thickness tear involving distal subscapularis is noted. Mild to moderate supraspinatus muscle atrophy is seen on sagittal images. Bones and bursae: There is mild superior migration of humeral head in relation to glenoid. Moderate acromioclavicular joint osteoarthritic changes are seen. Mild to moderate glenohumeral joint osteoarthritic changes also noted. No marrow edema. No acute fracture or dislocation. Type 2 acromion without an os acromiale. Capsule and soft tissues: The labrum and glenohumeral ligaments appear intact. The long head of the biceps tendon demonstrates normal location and morphology. The rotator interval appears normal, without fibrosis. The coracohumeral ligament is of normal thickness. No intra-articular bodies. IMPRESSION: 1. Full-thickness rupture of supraspinatus at its insertion on the humeral head with up to 2.5 cm medial retraction of torn tendon fibers to the level of acromion. Mild to moderate supraspinatus muscle atrophy. 2. Low to moderate grade articular surface partial-thickness tear involving distal infraspinatus. Low-grade partial-thickness tear involving superior fibers of distal subscapularis. 3. Mild superior migration of humeral head in relation to glenoid. No acute fracture or dislocation. [id number] acromioclavicular joint and glenohumeral joint osteoarthritis. No intra-articular loose bodies. 4. No evidence of focal labral tear. Dictated by: Blue Claudio M.D. on 07/31/2024 at 11:42 Approved by: Blue lCaudio M.D. on 07/31/2024 at 11:54
== END ==
PROVIDERS: PCP Family Medicine; Referring Provider Family Medicine; Visit Provider Family Medicine
DX: M75.122 Complete rotator cuff tear or rupture of left shoulder, not specified as traumatic (principal); M19.012 Primary osteoarthritis, left shoulder; M25.512 Pain in left shoulder; G89.29 Other chronic pain
CPT/HCPCS: 73222; A9579

== ENCOUNTER → 2024-08-30 07:28 | Outpatient (CLI) | payer MEDICARE, BC, SELFPAY ==
--- NOTE | 2024-08-30 07:29 | DI.US.S_ITS ---
PROCEDURE: US ABDOMEN LIMITED INDICATIONS: hepatic cyst TECHNIQUE: Real-time focused scanning was performed of the abdomen, with image documentation. COMPARISON: [facility], US, US ABDOMEN LIMITED, 12/05/2020, 10:03. FINDINGS: Scattered hepatic cysts are again seen, similar if not identical in appearance to the prior ultrasound study from 12/05/20. No solid mass lesion is found. The largest left hepatic cyst measures up to 7 cm and the largest right hepatic cyst measures up to 3 cm. Two small gallstones are seen within the gallbladder lumen, measuring only 2.7 and 2.5 mm in maximal dimension. No biliary distention is present. IMPRESSION: Stable appearing scattered right and left hepatic lobe cysts when compared to the prior ultrasound from early 2020. Two small gallstones measuring slightly under 3 mm each are noted within the gallbladder lumen. These were not previously noted but the prior targeted liver ultrasound did not specifically review the gallbladder. Dictated by: Cristobal Conrad M.D. on 08/30/2024 at 9:29 Approved by: Cristobal Conrad M.D. on 08/30/2024 at 9:34
== END ==
PROVIDERS: PCP Family Medicine; Referring Provider Family Medicine; Visit Provider Family Medicine
DX: K76.89 Other specified diseases of liver (principal); K80.20 Calculus of gallbladder without cholecystitis without obstruction
CPT/HCPCS: 76705

== ENCOUNTER → 2024-10-27 14:54 | Outpatient (CLI) | payer MEDICARE, SELFPAY ==
--- NOTE | 2024-10-27 14:57 | DI.MG.S_ITS ---
BILATERAL DIGITAL SCREENING MAMMOGRAM 3D/2D WITH CAD: 10/27/2024 CLINICAL: Routine screening. Family history of breast cancer. Comparison is made to exams dated: 10/03/2023 mammogram, 09/29/2022 mammogram, and 09/02/2021 mammogram - [facility]. There are scattered areas of fibroglandular density (category b / 25%-50% glandular tissue). Current study was also evaluated with a Computer Aided Detection (CAD) system. No significant masses, calcifications, or other findings are seen in either breast. There has been no significant interval change. IMPRESSION: NEGATIVE There is no mammographic evidence of malignancy. A 1 year screening mammogram is recommended. Based on the Tyrer Cuzick model (a risk assessment model) the patient's lifetime risk is 11.3% and her 10 year risk is 7.8%. According to the ACR, ACS, and NCCN guidelines, an annual breast MRI exam along with mammogram is recommended if the patient's lifetime risk is 20% or greater. This exam was interpreted at Station ID: [id number]. NOTE: For mammograms, a report in lay terms will be sent to the patient. Approximately 15% of breast malignancies will not be visualized mammographically. In the management of a palpable breast mass, a negative mammogram must not discourage biopsy of a clinically suspicious lesion. Electronically Signed By: Du cadena/lizabeth:10/29/2024 07:51:53 letter sent: Normal Exam ACR BI-RADS Category 1: Negative
== END ==
PROVIDERS: PCP Family Medicine; Referring Provider Family Medicine; Visit Provider Family Medicine
DX: Z12.31 Encounter for screening mammogram for malignant neoplasm of breast (principal); Z80.3 Family history of malignant neoplasm of breast
CPT/HCPCS: 77063; 77067

== ENCOUNTER → 2025-04-24 10:06 | Outpatient (CLI) | payer MEDICARE, BC, SELFPAY | PROVIDERS: PCP Family Medicine; Visit Provider Nurse Practitioner Family | DX: R39.9 Unspecified symptoms and signs involving the genitourinary system (principal) | CPT/HCPCS: 81002; 87077; 87086; 87186 ==

== ENCOUNTER → 2025-09-02 07:14 | Outpatient (CLI) | payer MEDICARE, BC, SELFPAY ==
--- NOTE | 2025-09-02 07:16 | DI.ECHO.S_ITS ---
[place] [facility]+ [facility] : : [address] : [address] : : [id number] : : Phone: [phone] Echocardiogram Report + + :Name: FARRAH DE LEON Study Date: 09/02/2025 Height: 65 in : :[facility] ReadingLocation: Weight: 128 lb : : Gender: Female BSA: 1.6 m2 : :: 1955 Age: 70 yrs BP: 133/81 mmHg: :Reason For Study: NONRHEUMATIC MITRAL VALVE INSUFFICIENCY : :Ordering Physician: KYLIE, : :TIFFANIE Performed By: Alfredito Rivers : :Referring: TIFFANIE ESPINAL : + + Interpretation Summary The left ventricle is normal in size. The ejection fraction is estimated to be 60-65%. There are no focal wall motion abnormalities. Diastolic parameters suggest probable normal left ventricular diastolic function and normal filling pressures. The right ventricle is mildly dilated. The right ventricular systolic function is normal. The right ventricular systolic pressure is estimated to be at least 33 mmHg based on an estimated right atrial pressure of 3 mm Hg. The left atrial size is normal. There is mild mitral regurgitation. The aortic root is normal size. Large hepatic cyst noted. Procedure: A two-dimensional transthoracic echocardiogram with color flow and Doppler was performed. The study quality was technically good. Comparison is made with the echocardiogram of 07/27/2023. The patient was in normal sinus rhythm during the exam. Left Ventricle: The left ventricle is normal in size. There is normal left ventricular wall thickness. There is no ventricular septal defect visualized. The ejection fraction is estimated to be 60-65%. There are no focal wall motion abnormalities. Diastolic parameters suggest probable normal left ventricular diastolic function and normal filling pressures. Right Ventricle: The right ventricle is mildly dilated. The right ventricular systolic function is normal. Atria: The left atrial size is normal. Right atrial size is normal. There is no Doppler evidence for an interatrial shunt. Mitral Valve: The mitral valve leaflets are slightly calcified. There is mild mitral regurgitation. Aortic Valve: The aortic valve is trileaflet. The aortic valve is slightly calcified. No aortic regurgitation is present. Tricuspid Valve: The tricuspid valve leaflets are thin and pliable. There is mild tricuspid regurgitation. The right ventricular systolic pressure is estimated to be at least 33 mmHg based on an estimated right atrial pressure of 3 mm Hg. Pulmonic Valve: The pulmonic valve is not well seen, but is grossly normal. There is trace pulmonic regurgitation. Great Vessels: The aortic root is normal size. The dimensions of the ascending aorta are normal. The pulmonary artery is not well visualized, but is probably normal size. The IVC is of normal diameter and collapses greater than 50% with a sniff. This suggests a low right atrial pressure of 3 mm Hg. Pericardium/ Pleura There is no pericardial effusion. There is no pleural effusion. Large hepatic cyst noted. MMode/2D Measurements & Calculations LVIDd: 4.1 cm LVOT diam: 1.9 cm LVIDs: 2.7 cm Ao root diam: 3.3 cm FS: 33.1 % asc Aorta Diam: 3.4 cm EPSS: 0.38 cm IVSd: 0.86 cm LVPWd: 0.80 cm LV ghosh. diameter/BSA (cm/m^2): 2.5 LV sys. diameter/BSA (cm/m^2): 1.7 LA A2 area: 12.7 cm2 RA long axis: 4.1 cm LA A4 area: 11.8 cm2 RA area: 16.1 cm2 LA length (vol): 3.9 cm RA vol: 54.4 ml LA vol: 32.7 ml RA : 33.3 ml/m2 LA vol index: 20.0 ml/m2 IVC diam: 1.1 cm RVD1 (basal): 4.2 cm RVD2 (mid): 2.6 cm TAPSE: 2.3 cm Doppler Measurements & Calculations Ao V2 max: 156.6 cm/sec LVOT Max Lauri: 96.8 cm/sec Ao V2 mean: 104.6 cm/sec LV V1 max P.8 mmHg Ao max P.8 mmHg LV V1 VTI: 19.5 cm Ao mean P.9 mmHg EDILIA(I,D): 2.0 cm2 Ao V2 VTI: 27.5 cm EDILIA(V,D): 1.7 cm2 sev ratio: 0.71 EDILIA indexed to BSA (cm^2/m^2): 1.2 MV E max lauri: 58.7 cm/sec TR max lauri: 274.9 cm/sec MV A max lauri: 58.4 cm/sec TR max P.2 mmHg MV E/A: 1.0 PA V2 max: 104.0 cm/sec Med Peak E' Lauri: 7.8 cm/sec PA V2 mean: 76.5 cm/sec E/E' med: 7.5 PA mean P.5 mmHg Lat Peak E' Lauri: 10.4 cm/sec PA pr(Accel): 39.6 mmHg E/E' lat: 5.6 E/e' average: 6.6 MV dec time: 0.20 sec SV(LVOT): 54.4 ml Reading Physician:06:24 PM
--- NOTE | 2025-09-02 07:16 | DI.US.S_ITS ---
PROCEDURE: US ABDOMEN LIMITED INDICATIONS: Nonrheumatic mitral (valve) INSUFF.; HEPATIC CYST TECHNIQUE: Real-time scanning was performed of the abdominal and retroperitoneal organs, with image documentation. COMPARISON: [facility], , US ABDOMEN LIMITED, 08/30/2024, 7:40. FINDINGS: Liver: Liver is normal in size and homogeneous in echotexture. Multiple hepatic cysts, largest measuring up to 7.6 cm appearing similar to prior examination. Gallbladder: Small mobile gallstone. No gallbladder wall thickening. No pericholecystic edema. Negative sonographic Carvajal's sign. Biliary ducts: Intrahepatic bile ducts are non-dilated. Extrahepatic bile duct caliber measures 2 mm. Normal is 6-7 mm or less in diameter, or 10 mm or less post-cholecystectomy. Pancreas: Visualized portions of the pancreas are sonographically normal. Miscellaneous: No free abdominal fluid. IMPRESSION: Multiple hepatic cysts, largest measuring 7.6 cm similar to prior examination. Cholelithiasis without acute cholecystitis. Dictated by: Tanner Srinivasan [facility] Interpreted: Joseph Meyer MD on 09/04/2025 at 13:35 Transcribed by: RUSSEL on 09/04/2025 at 13:38 Approved by: Joseph Meyer M.D. on 09/04/2025 at 14:58
== END ==
LOC: US 07:15
PROVIDERS: PCP Family Medicine; Referring Provider Family Medicine; Visit Provider Family Medicine
DX: I08.1 Rheumatic disorders of both mitral and tricuspid valves (principal); K76.89 Other specified diseases of liver
CPT/HCPCS: 76705; 93306